=== PATIENT | female | born 1990 | race Caucasian/White ===

== ENCOUNTER 2016-06-13 07:34 | Inpatient (IN) | payer BC ==
[~2016-06-13] VITALS: Ht 157.5 cm; Wt 114.3 kg
[2016-06-13] VITALS (22 sets, daily range): BP systolic 132–165; BP diastolic 68–104
[2016-06-13 09:03] LABS: EOSINOPHIL (%) 0.6 % (0-5); EOSINOPHIL COUNT 0.1 K/uL (0-0.3); HEMATOCRIT 33.6 % (36.0-46.0); IMMATURE GRANULOCYTE (%) 0.5 % (0.0-0.7); IMMATURE GRANULOCYTE COUNT 0.1 K/uL; LYMPHOCYTE COUNT 2.4 K/uL (1.0-2.8); MCH 29.3 PG (29.0-34.0); MCHC 34.5 G/DL (30.0-36.0); MCV 84.8 FL (83-99); MONOCYTE (%) 5.1 % (3-12); MONOCYTE COUNT 0.7 K/uL (0-0.8); NEUTROPHIL (%) 75.4 % (45-76); PLATELET COUNT 174 K/uL (156-360); RBC DIS.WIDTH-CV 12.8 % (11.8-14.6); RBC DIS.WIDTH-SD 39.3 % (39-53); RED BLOOD COUNT 3.96 M/uL (3.80-5.20); WHITE BLOOD COUNT 13.2 K/uL (4.1-10.2)
[2016-06-13] MEDS ORDERED: ZANTAC75 M1 PO (18:22)
[2016-06-13] MEDS ORDERED: PRENATAL COMPL1 EACH PO (18:22)
[2016-06-13] MEDS ORDERED: LO-DOSE ASPIRIN81 M2 PO (18:23)
[2016-06-14] VITALS (45 sets, daily range): BP systolic 80–179; BP diastolic 42–109
[2016-06-14 07:32] LABS: EOSINOPHIL (%) 0.2 % (0-5); HEMATOCRIT 31.2 % (36.0-46.0); IMMATURE GRANULOCYTE (%) 0.4 % (0.0-0.7); IMMATURE GRANULOCYTE COUNT 0.1 K/uL; INSTRUMENT ABS NEUTROPHIL CT 9.2 K/uL; LYMPHOCYTE COUNT 1.9 K/uL (1.0-2.8); MCH 29.4 PG (29.0-34.0); MCHC 34.6 G/DL (30.0-36.0); MEAN PLAT.VOLUME 12.2 uM^3 (9.5-12.4); MONOCYTE (%) 6.3 % (3-12); MONOCYTE COUNT 0.8 K/uL (0-0.8); NEUTROPHIL (%) 76.9 % (45-76); NEUTROPHIL COUNT 9.2 K/uL (1.8-6.4); PLATELET COUNT 173 K/uL (156-360); RBC DIS.WIDTH-CV 12.9 % (11.8-14.6); RBC DIS.WIDTH-SD 39.5 % (39-53); RED BLOOD COUNT 3.67 M/uL (3.80-5.20)
[2016-06-14 07:46] LABS: CHLORIDE 109 mEq/L (99-109); POTASSIUM 4.2 mEq/L (3.7-5.4); SODIUM 138 mEq/L (136-147)
[2016-06-14 07:48] LABS: GLUCOSE 76 mg/dL (70-99)
[2016-06-14 07:50] LABS: ANION GAP 11 MEQ/L (2-14); TOTAL BILIRUBIN 0.4 mg/dL (0.0-1.0)
[2016-06-14 07:52] LABS: ALKALINE PHOSPHATASE 174 IU/L (3-129); GFR ESTIMATE (CALCULATED) > 59 mL/min/
[2016-06-14 07:53] LABS: UREA NITROGEN (BUN) 12 mg/dL (9-23)
[2016-06-15 02:49] VITALS: BP 136/96
[2016-06-15 06:42] LABS: EOSINOPHIL (%) 0.1 % (0-5); HEMATOCRIT 26.2 % (36.0-46.0); IMMATURE GRANULOCYTE (%) 0.4 % (0.0-0.7); IMMATURE GRANULOCYTE COUNT 0.1 K/uL; INSTRUMENT ABS NEUTROPHIL CT 16.1 K/uL; LYMPHOCYTE COUNT 3.4 K/uL (1.0-2.8); MCH 30.1 PG (29.0-34.0); MCHC 35.1 G/DL (30.0-36.0); MCV 85.6 FL (83-99); MEAN PLAT.VOLUME 12.1 uM^3 (9.5-12.4); MONOCYTE COUNT 1.5 K/uL (0-0.8); NEUTROPHIL (%) 76.1 % (45-76); NEUTROPHIL COUNT 16.1 K/uL (1.8-6.4); PLATELET COUNT 161 K/uL (156-360); RBC DIS.WIDTH-CV 13.1 % (11.8-14.6); RBC DIS.WIDTH-SD 40.1 % (39-53); RED BLOOD COUNT 3.06 M/uL (3.80-5.20)
[2016-06-15 06:46] LABS: WHITE BLOOD COUNT 21.1 K/uL (4.1-10.2)
[2016-06-15 07:24] VITALS: BP 131/73
[2016-06-15 13:20] VITALS: BP 142/96
[2016-06-15 21:15] VITALS: BP 168/104
[2016-06-15 21:55] VITALS: BP 155/74
[2016-06-16 02:30] VITALS: BP 118/79
[2016-06-16 06:46] VITALS: BP 158/83
[2016-06-16 09:00] VITALS: BP 139/74
[2016-06-16 12:00] VITALS: BP 150/83
[2016-06-16] MEDS ORDERED: IBUPROFEN800 MG PO (15:31)
[2016-06-16] MEDS ORDERED: LABETALOL HCL100 MG PO (15:31)
[2016-06-16 18:49] VITALS: BP 160/86
[2016-06-16 20:03] VITALS: BP 141/82
[2016-06-17 10:34] LABS: TREPONEMA ANTIBODY NEGATIVE (NEGATIVE)
[2016-06-17 12:20] LABS: CHLAMYDIA TRACHOMATIS NEGATIVE; NEISSERIA GONORRHOEAE NEGATIVE
== END 2016-06-16 21:02 | disposition home or self-care (01) | DRG 774 ==
LOC: LDRP-OP 07:34 → 2WEST 07:35 → LDRP-OP 19:33 → 2WEST 06-14 18:25 → LDRP-OP 07-11 20:14
PROVIDERS: Midwife; Nurse Practitioner; Obstetrics & Gynecology
PROC: 3E0S3CZ (ICD-10-PCS; principal; 2016-06-13)
PROC: 3E0P7GC Introduction of Other Therapeutic Substance into Female Reproductive, Via Natural or Artificial Opening (ICD-10-PCS; principal; 2016-06-13)
PROC: 00HU33Z Insertion of Infusion Device into Spinal Canal, Percutaneous Approach (ICD-10-PCS; principal; 2016-06-13)
PROC: 10E0XZZ Delivery of Products of Conception, External Approach (ICD-10-PCS; 2016-06-14)
PROC: 0KQM0ZZ Repair Perineum Muscle, Open Approach (ICD-10-PCS; 2016-06-14)
DX: O10.92 Unspecified pre-existing hypertension complicating childbirth (principal); O99.344 Other mental disorders complicating childbirth; O10.02 Pre-existing essential hypertension complicating childbirth; O99.214 Obesity complicating childbirth; E66.01 Morbid (severe) obesity due to excess calories; Z68.41 Body mass index [BMI] 40.0-44.9, adult; F41.9 Anxiety disorder, unspecified; O63.9 Long labor, unspecified; O99.02 Anemia complicating childbirth; D62 Acute posthemorrhagic anemia; O70.1 Second degree perineal laceration during delivery; Z3A.40 40 weeks gestation of pregnancy; Z37.0 Single live birth
CPT/HCPCS: 80053; 85025; 86780; 87491; 87591; 88307; C1755; G0378; J3010; J7120